=== PATIENT | female | born 1960 | race Caucasian/White ===

== ENCOUNTER 2018-06-12 11:28 | Observation (INO) ==
--- NOTE | 2018-06-12 11:37 | Emergency Department Note ---
Disposition Clinical Impression: Chest pain, Headache Disposition: Home, Self-Care Condition: Good Referrals: Anna Nicole CNP [Primary Care Provider] - Forms: ED Satisfaction Letter Time of Disposition: 14:30 Chest Pain HPI - General Chief Complaint: ED Chest Pain Stated Complaint: chest pain int x2 weeks Time Seen by Provider: 06/12/18 11:30 Source: patient Mode of arrival: ambulatory Limitations: no limitations Vital Signs Reviewed: Yes Nursing Notes Reviewed: Yes - History of Present Illness HPI Narrative: 58-year-old female who presents today with intermittent chest pains last couple of weeks. She states really she has not felt well for about 4 weeks. 5 weeks ago she was started onto a city and she states that her sugars are back under control she feels weak and shaky off and now. She states the chest pain start i n her left upper chest radiating into her jaw and down her left arm. She states she gets very nauseated with them and very weak with them. She states that she does not herself have a history of cardiac disease but her dad had a heart attack in his 60s and got multiple stents. She states about 4 years ago she had a stress test which was normal. She is not a smoker. She is a diabetic. She does not have high cholesterol. Pt complaint: chest pain - Related Data Home Medications Medication Instructions Recorded Confirmed Aspirin 81 mg PO DAILY 01/26/16 06/12/18 LORazepam [Ativan] 0.5 mg PO TID 01/26/16 06/12/18 Lansoprazole [Prevacid] 30 mg PO DAILY 01/26/16 06/12/18 Liraglutide [Victoza 2-Rehan] 1.6 mg SQ DAILY 01/26/16 06/12/18 Oxycodone HCl/Acetaminophen 1 each PO TID 09/25/17 06/12/18 [Percocet 7.5-325 mg Tablet] SitaGLIPtin [Januvia] 100 mg PO DAILY 09/25/17 06/12/18 Trazodone HCl 200 mg PO HS 09/25/17 06/12/18 Dulaglutide [Trulicity] 0.75 mg SQ Q1W 06/12/18 06/12/18 Previous Rx's Medication Instructions Recorded Naproxen [Naprosyn] 500 mg PO BID #14 tablet 09/25/17 Omeprazole [PriLOSEC] 20 mg PO DAILY #28 cap 10/14/18 Acetaminophen/Butalbital/Caffe 1 each PO Q6HR PRN #5 tablet 05/18/18 [Fioricet] Allergies Allergy/AdvReac Type Severity Reaction Status Date / Time No Known Allergies Allergy Verified 09/26/17 16:31 Review of Systems: All other systems are negative except as noted/marked Chart generated with voice recognition software Nursing notes reviewed Old records reviewed Chest Pain PMH - Past Medical History Medical history: Reports: cancer, DVT, diabetes, GERD, hypertension, migraine, renal disease, other Surgical history: Reports: cancer surgery, cholecystectomy, hysterectomy, orthopedic, other Psychiatric history: Reports: anxiety, depression DESIGN CHECKER history: Reports: no DESIGN CHECKER history - Social History Smoking Status: Former smoker Alcohol use: Reports: none Drug use: Reports: none Physical Exam General: NAD, VSS Head: normocephalic, atraumatic Eyes: EOMI, PERRLA mouth: moist mucous membranes Neck: NO CLA, Supple Chest wall: normal rise, no crepitus, no deformity noted Lungs: moving air well, no distress Heart: RRR, no murmur Abd: soft, nontender, BS normal : deferred MSK: strength equal in all four extremities Ext: moves all four extremities, no obvious deformities Skin: cap refill normal, warm, dry neuro : CN2-12 grossly intact, A&Ox3 Psych: normal affect, not anxious Course Vital Signs Temperature 97.8 F 06/12/18 11:30 Pulse Rate 98 06/12/18 11:30 Respiratory Rate 18 06/12/18 11:30 Blood Pressure 125/87 06/12/18 11:30 O2 Sat by Pulse Oximetry 99 06/12/18 11:30 Temperature 97.8 F 06/12/18 11:30 Pulse Rate 83 06/12/18 13:26 Respiratory Rate 18 06/12/18 13:26 Blood Pressure 135/105 06/12/18 13:26 O2 Sat by Pulse Oximetry 93 06/12/18 13:26 Oxygen Delivery Oxygen Delivery Room Air Chest Pain - MDM Narrative Medical decision making narrative: On re-evaluation, patient still not having chest pain but is complaining of some headache. she has had these off and on for " a while" will given phenergan and tylenol for the headache and obtain head CT as she hsan't had a work up for these. First enzyme negative. Will repeat at 2 hour then disposition. Heart score of 5 Her repeat troponin is negative. She still having somewhat of a headache but I gave her her daily Fioricet that she takes at home along with Phenergan she got here in the Tylenol. I recommended that we keep her overnight his story was pretty good and heart score is 5 at just to make sure nothing else shows up. I spoke with Dr. Roberts the hospitalist who agreed to keep her for evaluation. - Medical Records Medical records reviewed: Yes I reviewed the patient's medical records. - Lab Data Lab results reviewed: Yes I reviewed the patient's lab results. Result diagrams: 06/12/18 11:49 06/12/18 11:49 Lab Results 06/12/18 06/12/18 06/12/18 Range/Units 11:49 11:49 11:49 WBC 7.7 (4.3-11.1) K/mcL RBC 5.39 H (3.82-4.97) M/mcL Hgb 14.5 (11.5-15.4) g/dL Hct 45.0 H (35.3-44.9) % MCV 83.5 (83.0-100.0) fL MCH 26.9 L (28.0-33.3) pg MCHC 32.2 (31.6-35.5) g/dL RDW 12.7 (11.5-14.5) % Plt Count 232 (140-400) K/mcL MPV 10.8 (9.4-12.4) fL Immature Gran % 0.4 (0-4) % Seg Neutrophils % 69.2 % Lymphocytes % 20.9 % Monocytes % 6.4 % Eosinophils % 2.6 % Basophils % 0.5 % Neutrophils # 5.3 (1.6-8.9) K/mcL Lymphocytes # 1.6 (0.6-4.6) K/mcL Monocytes # 0.5 (0.0-1.3) K/mcL Eosinophils # 0.2 (0.0-0.6) K/mcL Basophils # 0.0 (0.0-0.2) K/mcL PT 11.7 (9.4-12.1) Seconds INR 1.0 APTT 38.9 H (26.0-36.0) Seconds Sodium (136-145) mEq/L Potassium (3.5-5.1) mEq/L Chloride (98-107) mEq/L Carbon Dioxide (23-29) mEq/L BUN (8-23) mg/dL Creatinine (0.60-1.20) mg/dL Est GFR ( Amer) (> 60) Est GFR (Non-Af Amer) (> 60) BUN/Creatinine Ratio (6-26) Glucose (70-105) mg/dL Calculated Osmolality (280-300) Calcium (8.6-10.3) mg/dL Troponin I (< 0.04) ng/mL B-Natriuretic Peptide 11 (Less than 100) pg/mL Urine Color (Yellow) Urine Clarity (Clear) Urine pH (5.0-8.0) pH Units Ur Specific Bl[place]ard (1.010-1.025) Urine Protein (Neg-Trace) mg/dL Urine Glucose (UA) (Normal) mg/dL Urine Ketones (Negative) mg/dL Urine Blood (Negative) Urine Nitrite (Negative) Urine Bilirubin (Negative) Urine Urobilinogen (Normal) mg/dL Ur Leukocyte Esterase (Negative) Urine Microscopic WBC (0-3) per hpf Ur Squamous Epith Cells (None-Few) per lpf Urine Bacteria (None-Few) per hpf Urine Mucus (Few) Ur Culture Indicated? (NO) Urine Opiates Screen (Iqfzmi=418) ng/mL Ur Oxycodone Screen (Cutoff= 100) ng/mL Ur Barbiturates Screen (Cmtvic=489) ng/mL Ur Phencyclidine Scrn (Cutoff=25) ng/mL Ur Amphetamines Screen (Moalyj=8041) ng/mL U Benzodiazepines Scrn (Ovqcha=505) ng/mL Urine Cocaine Screen (Cutoff= 300) ng/mL U Marijuana (THC) Screen (Cutoff = 50) ng/mL Ur Drug Screen Interp 06/12/18 06/12/18 06/12/18 Range/Units 11:49 13:12 13:12 WBC (4.3-11.1) K/mcL RBC (3.82-4.97) M/mcL Hgb (11.5-15.4) g/dL Hct (35.3-44.9) % MCV (83.0-100.0) fL MCH (28.0-33.3) pg MCHC (31.6-35.5) g/dL RDW (11.5-14.5) % Plt Count (140-400) K/mcL MPV (9.4-12.4) fL Immature Gran % (0-4) % Seg Neutrophils % % Lymphocytes % % Monocytes % % Eosinophils % % Basophils % % Neutrophils # (1.6-8.9) K/mcL Lymphocytes # (0.6-4.6) K/mcL Monocytes # (0.0-1.3) K/mcL Eosinophils # (0.0-0.6) K/mcL Basophils # (0.0-0.2) K/mcL PT (9.4-12.1) Seconds INR APTT (26.0-36.0) Seconds Sodium 138 (136-145) mEq/L Potassium 4.3 (3.5-5.1) mEq/L Chloride 101 (98-107) mEq/L Carbon Dioxide 29 (23-29) mEq/L BUN 18 (8-23) mg/dL Creatinine 0.80 (0.60-1.20) mg/dL Est GFR ( Amer) > 60 (> 60) Est GFR (Non-Af Amer) > 60 (> 60) BUN/Creatinine Ratio 23 (6-26) Glucose 183 H (70-105) mg/dL Calculated Osmolality 293 (280-300) Calcium 9.2 (8.6-10.3) mg/dL Troponin I < 0.03 (< 0.04) ng/mL B-Natriuretic Peptide (Less than 100) pg/mL Urine Color Yellow (Yellow) Urine Clarity Clear (Clear) Urine pH 5.5 (5.0-8.0) pH Units Ur Specific [place] >= 1.030 H (1.010-1.025) Urine Protein 30 H (Neg-Trace) mg/dL Urine Glucose (UA) 100 H (Normal) mg/dL Urine Ketones Negative (Negative) mg/dL Urine Blood Negative (Negative) Urine Nitrite Negative (Negative) Urine Bilirubin Negative (Negative) Urine Urobilinogen Normal (Normal) mg/dL Ur Leukocyte Esterase Negative (Negative) Urine Microscopic WBC 5-15 H (0-3) per hpf Ur Squamous Epith Cells Few (None-Few) per lpf Urine Bacteria Few (None-Few) per hpf Urine Mucus Moderate H (Few) Ur Culture Indicated? NO (NO) Urine Opiates Screen Negative (Yjrsxy=144) ng/mL Ur Oxycodone Screen Positive H (Cutoff= 100) ng/mL Ur Barbiturates Screen Negative (Tipxpz=876) ng/mL Ur Phencyclidine Scrn Negative (Cutoff=25) ng/mL Ur Amphetamines Screen Negative (Niwmlq=4762) ng/mL U Benzodiazepines Scrn Positive H (Tghptl=385) ng/mL Urine Cocaine Screen Negative (Cutoff= 300) ng/mL U Marijuana (THC) Screen Negative (Cutoff = 50) ng/mL Ur Drug Screen Interp See Below 06/12/18 Range/Units 13:35 WBC (4.3-11.1) K/mcL RBC (3.82-4.97) M/mcL Hgb (11.5-15.4) g/dL Hct (35.3-44.9) % MCV (83.0-100.0) fL MCH (28.0-33.3) pg MCHC (31.6-35.5) g/dL RDW (11.5-14.5) % Plt Count (140-400) K/mcL MPV (9.4-12.4) fL Immature Gran % (0-4) % Seg Neutrophils % % Lymphocytes % % Monocytes % % Eosinophils % % Basophils % % Neutrophils # (1.6-8.9) K/mcL Lymphocytes # (0.6-4.6) K/mcL Monocytes # (0.0-1.3) K/mcL Eosinophils # (0.0-0.6) K/mcL Basophils # (0.0-0.2) K/mcL PT (9.4-12.1) Seconds INR APTT (26.0-36.0) Seconds Sodium (136-145) mEq/L Potassium (3.5-5.1) mEq/L Chloride (98-107) mEq/L Carbon Dioxide (23-29) mEq/L BUN (8-23) mg/dL Creatinine (0.60-1.20) mg/dL Est GFR ( Amer) (> 60) Est GFR (Non-Af Amer) (> 60) BUN/Creatinine Ratio (6-26) Glucose (70-105) mg/dL Calculated Osmolality (280-300) Calcium (8.6-10.3) mg/dL Troponin I < 0.03 (< 0.04) ng/mL B-Natriuretic Peptide (Less than 100) pg/mL Urine Color (Yellow) Urine Clarity (Clear) Urine pH (5.0-8.0) pH Units Ur Specific [place] (1.010-1.025) Urine Protein (Neg-Trace) mg/dL Urine Glucose (UA) (Normal) mg/dL Urine Ketones (Negative) mg/dL Urine Blood (Negative) Urine Nitrite (Negative) Urine Bilirubin (Negative) Urine Urobilinogen (Normal) mg/dL Ur Leukocyte Esterase (Negative) Urine Microscopic WBC (0-3) per hpf Ur Squamous Epith Cells (None-Few) per lpf Urine Bacteria (None-Few) per hpf Urine Mucus (Few) Ur Culture Indicated? (NO) Urine Opiates Screen (Pimkpv=389) ng/mL Ur Oxycodone Screen (Cutoff= 100) ng/mL Ur Barbiturates Screen (Jicumk=130) ng/mL Ur Phencyclidine Scrn (Cutoff=25) ng/mL Ur Amphetamines Screen (Glcqvo=5633) ng/mL U Benzodiazepines Scrn (Avxbmg=045) ng/mL Urine Cocaine Screen (Cutoff= 300) ng/mL U Marijuana (THC) Screen (Cutoff = 50) ng/mL Ur Drug Screen Interp - Radiology Data Radiology results reviewed: Yes I reviewed the patient's radiology results. EXAMINATION: SINGLE XRAY VIEW OF THE CHEST 06/12/2018 11:45 am COMPARISON: 02/08/2018. HISTORY: ORDERING SYSTEM PROVIDED HISTORY: chest pain Acute. Initial exam. FINDINGS: The cardiac silhouette and mediastinal contours are normal. The lungs are clear. No parenchymal lung infiltrate. No pleural effusion. The visualized osseous structures are unremarkable. XR/XR chest 1V portable IMPRESSION: 1. No acute cardiopulmonary disease. D/ / Tobias Tracy MD / Tobias Tracy MD Interpreting Provider: Tobias Tracy MD INATION: CT OF THE HEAD WITHOUT CONTRAST 06/12/2018 12:20 pm TECHNIQUE: CT of the head was performed without the administration of intravenous contrast. Dose modulation, iterative reconstruction, and/or weight based adjustment of the mA/kV was utilized to reduce the radiation dose to as low as reasonably achievable. COMPARISON: None. HISTORY: ORDERING SYSTEM PROVIDED HISTORY: headache Headache. FINDINGS: BRAIN/VENTRICLES: There is no acute intracranial hemorrhage, mass effect or midline shift. No abnormal extra-axial fluid collection. The marin-white differentiation is maintained without evidence of an acute infarct. There is no evidence of hydrocephalus. ORBITS: The visualized portion of the orbits demonstrate no acute abnormality. SINUSES: The visualized paranasal sinuses and mastoid air cells demonstrate no acute abnormality. SOFT TISSUES/SKULL: No acute abnormality of the visualized skull or soft tissues. CT/CT head/brain wo con IMPRESSION: No acute intracranial abnormality. D/ / Baltazar Delgado MD / Baltazar Delgado MD Interpreting Provider: Baltazar Delgado MD - EKG Data EKG attestation: Yes I reviewed and interpreted this EKG. EKG results narrative: EKG interpreted by myself as a sinus rhythm with a rate of [address] elevation Heart Score - Score History: Highly Suspicious EKG: Normal Age: 45-65 Risk Factors: Equal/Greater than 3 risk factor or history of atherosclerotic disease Troponin: Less than normal limit HEART Score Total: 5
[2018-06-12 11:55] LABS: Basophils % 0.5 %; Eosinophils # 0.2 K/mcL (0.0-0.6); Eosinophils % 2.6 %; Hemoglobin 14.5 g/dL (11.5-15.4); Immature Granulocytes % 0.4 % (0-4); Lymphocytes # 1.6 K/mcL (0.6-4.6); Lymphocytes % 20.9 %; Mean Corpuscular HGB Conc 32.2 g/dL (31.6-35.5); Mean Corpuscular Hemoglobin 26.9 pg (28.0-33.3); Mean Corpuscular Volume 83.5 fL (83.0-100.0); Mean Platelet Volume 10.8 fL (9.4-12.4); Monocytes # 0.5 K/mcL (0.0-1.3); Monocytes % 6.4 %; Neutrophils # 5.3 K/mcL (1.6-8.9); Platelet Count 232 K/mcL (140-400); Red Blood Count 5.39 M/mcL (3.82-4.97); Red Cell Distribution Width 12.7 % (11.5-14.5); Segmented Neutrophils % 69.2 %
[2018-06-12] MEDS ORDERED: *HR* Promethazine 25 MG/ML VIAL IVP ONE (12:02)
[2018-06-12 12:04] LABS: Prothrombin Time 11.7 Seconds (9.4-12.1)
[2018-06-12 12:06] LABS: Activated Partial Thrombo Time 38.9 Seconds (26.0-36.0)
[2018-06-12 12:13] LABS: BUN/Creatinine Ratio 23 (6-26); Blood Urea Nitrogen 18 mg/dL (8-23); Calcium 9.2 mg/dL (8.6-10.3); Carbon Dioxide 29 mEq/L (23-29); Chloride 101 mEq/L (98-107); Glucose 183 mg/dL (70-105); Osmolality,Calculated 293 (280-300); Potassium 4.3 mEq/L (3.5-5.1); Sodium 138 mEq/L (136-145); eGFR For Non-African Americans > 60 (> 60)
[2018-06-12 12:16] LABS: Troponin I < 0.03 ng/mL (< 0.04)
[2018-06-12 13:19] LABS: Bilirubin,Urine Negative (Negative); Blood,Urine Negative (Negative); Clarity,Urine Clear (Clear); Color,Urine Yellow (Yellow); Glucose,Urine (UA) 100 mg/dL (Normal); Ketones,Urine Negative (Negative); Leukocyte Esterase,Urine Negative (Negative); Nitrite,Urine Negative (Negative); PH,Urine 5.5 pH Units (5.0-8.0); Protein,Urine 30 mg/dL (Neg-Trace); Specific Gravity,Urine >= 1.030 (1.010-1.025); Urobilinogen,Urine Normal (Normal)
[2018-06-12 13:26] LABS: Squamous Epithelial Cell,Urine Few per lpf (None-Few)
[2018-06-12 13:27] LABS: Bacteria,Urine Few per hpf (None-Few); Mucus,Urine Moderate (Few)
[2018-06-12 13:32] LABS: Amphetamine Screen,Urine Negative ng/mL (Cutoff=1000); Barbiturate Screen,Urine Negative ng/mL (Cutoff=200); Benzodiazepines Screen,Urine Positive ng/mL (Cutoff=200); Cannabinoid Screen,Urine Negative ng/mL (Cutoff = 50); Cocaine Screen,Urine Negative ng/mL (Cutoff= 300); Opiate Screen,Urine Negative ng/mL (Cutoff=300); Phencyclidine Screen,Urine Negative ng/mL (Cutoff=25)
[2018-06-12] MEDS ORDERED: Acetaminophen/Butalbital/CaffeineTABLET PO STA (13:46)
[2018-06-12] MEDS ORDERED: cephALEXin 250 MG CAPSULE PO ONE (14:04)
[2018-06-12] MEDS ORDERED: (Dulaglutide [Trulicity] 0.75 MG) SQ SCH (17:25)
[2018-06-12] MEDS ORDERED: Ibuprofen 400 MG TABLET PO PRN (17:25)
[2018-06-12] MEDS ORDERED: MOM Conc 10 ML UD.LIQ PO PRN (17:25)
[2018-06-12] MEDS ORDERED: Ketorolac 30 MG/ML VIAL IVP PRN (17:25)
[2018-06-12] MEDS ORDERED: *HR* Promethazine 25 MG/ML VIAL IVP PRN (17:25)
[2018-06-12] MEDS ORDERED: Acetaminophen 325 MG TABLET PO PRN (17:25)
[2018-06-12] MEDS ORDERED: Mag Hydrox/Al Hydrox/Simeth 30 ML UDC PO PRN (17:25)
[2018-06-12] MEDS ORDERED: Ondansetron 4 MG/2 ML VIAL IVP PRN (17:25)
[2018-06-12] MEDS ORDERED: Naloxone 0.4 MG/ML INJ IVP PRN ×2 (17:25)
[2018-06-12] MEDS: *HR* LORazepam 0.5 MG TABLET PO SCH ×2 (19:00→21:26)
[2018-06-12] MEDS: *HR* OxyCODONE/APAP 7.5/325 TABLET PO SCH ×2 (19:04→21:30)
[2018-06-12] MEDS ORDERED: traZODone 50 MG TABLET PO SCH (21:00)
[2018-06-13 06:07] LABS: Basophils # 0.1 K/mcL (0.0-0.2); Basophils % 0.6 %; Eosinophils # 0.2 K/mcL (0.0-0.6); Eosinophils % 2.3 %; Hematocrit 43.5 % (35.3-44.9); Hemoglobin 14.2 g/dL (11.5-15.4); Immature Granulocytes % 0.4 % (0-4); Lymphocytes # 2.2 K/mcL (0.6-4.6); Lymphocytes % 27.2 %; Mean Corpuscular HGB Conc 32.6 g/dL (31.6-35.5); Mean Corpuscular Hemoglobin 27.4 pg (28.0-33.3); Mean Corpuscular Volume 83.8 fL (83.0-100.0); Mean Platelet Volume 10.7 fL (9.4-12.4); Monocytes # 0.6 K/mcL (0.0-1.3); Monocytes % 6.7 %; Neutrophils # 5.1 K/mcL (1.6-8.9); Platelet Count 216 K/mcL (140-400); Red Blood Count 5.19 M/mcL (3.82-4.97); Red Cell Distribution Width 12.8 % (11.5-14.5); Segmented Neutrophils % 62.8 %
[2018-06-13 06:30] LABS: BUN/Creatinine Ratio 16 (6-26); Blood Urea Nitrogen 14 mg/dL (8-23); Carbon Dioxide 30 mEq/L (23-29); Chloride 102 mEq/L (98-107); Glucose 144 mg/dL (70-105); Osmolality,Calculated 289 (280-300); Potassium 3.9 mEq/L (3.5-5.1); Sodium 138 mEq/L (136-145); eGFR For Non-African Americans > 60 (> 60)
[2018-06-13 07:35] VITALS: BP 110/75
[2018-06-13] MEDS: *HR* OxyCODONE/APAP 7.5/325 TABLET PO SCH (08:42)
[2018-06-13] MEDS: *HR* LORazepam 0.5 MG TABLET PO SCH (08:42)
[2018-06-13] MEDS ORDERED: Aspirin 81 MG TAB.CHEW PO SCH (09:00)
[2018-06-13] MEDS ORDERED: LIRAGLUTIDE 1.6 MG SQ SCH (09:00)
[2018-06-13] MEDS ORDERED: *HR* SitaGLIPtin 25 MG TABLET PO SCH (09:00)
--- NOTE | 2018-06-13 12:10 | Internal Med History&Physical ---
Date of Encounter: 06/13/18 Time of Encounter: 12:07 Assessment and Plan (1) Non-cardiac chest pain Current visit: Yes Status: Resolved Pt with non-anginal chest pain which appears muscloskeletal. She is currently asymptomatic. Exam is benign. Work-up negative including serial cardiac enzymes, EKG, telemetry and CXR. She will f/u with PCP for further evaluation and return to ED with any symptoms of acute coronary syndrome. Internal Medicine - H&P: HPI Chief complaint: chest pain Admitted From: Home Plans for Post Hospital Care: Home History of present illness: Ms. Mayberry is a 58 year old female with no known history of CAD that presented to ED with a few week history of sporadic, intermittent episodes of sharp, stabbing left upper chest pain which would radiate in to left arm and left neck. Pain would last 2-3 minutes before self-resolving. No pain with exertion. She does note that twisting of torso does make pain worse when it is occurring. She also has her chronic headaches which are unchanged. She has neurology f/u arr anged per her report. Following negative ED work-up, pt was admitted for serial cardiac enzymes. Pt has remained chest pain free and is doing well. All cardiac enzymes negative. Telemetry benign. Pt is ambulating and tolerating regular diet. She is agreeable to discharge home at this time. Past Med Surg Social Fam HX - Past Medical History Medical history: cancer, DVT, diabetes, GERD, hypertension, migraine, renal disease, other Additional medical history: skin and uterine cancer Psychiatric history: anxiety, depression - Past Surgical History Surgical History: cancer surgery, cholecystectomy, hysterectomy, orthopedic, other Additional surgical history: right knee scope. skin cancer removed from face - Social History Smoking Status: Former smoker Smokeless Tobacco Status: Yes Alcohol use: none Drug use: none - Family History Father Living Status: Hx Family Cancer: Yes (leukemia) Hx Family Neurologic Disorders: Yes (alzheimers) Internal Medicine - H&P: Meds Aspirin 81 mg PO DAILY 01/26/16 [History] LORazepam [Ativan] 0.5 mg PO TID 01/26/16 [History] Lansoprazole [Prevacid] 30 mg PO DAILY 01/26/16 [History] Liraglutide [Victoza 2-Rehan] 1.6 mg SQ DAILY 01/26/16 [History] Naproxen [Naprosyn] 500 mg PO BID #14 tablet 09/25/17 [Rx] Oxycodone HCl/Acetaminophen [Percocet 7.5-325 mg Tablet] 1 each PO TID 09/25/17 [History] SitaGLIPtin [Januvia] 100 mg PO DAILY 09/25/17 [History] Trazodone HCl 200 mg PO HS 09/25/17 [History] Omeprazole [PriLOSEC] 20 mg PO DAILY #28 cap 02/08/18 [Rx] Acetaminophen/Butalbital/Caffe [Fioricet] 1 each PO Q6HR PRN #5 tablet 05/18/18 [Rx] Dulaglutide [Trulicity] 0.75 mg SQ Q1W 06/12/18 [History] Allergy/AdvReac Type Severity Reaction Status Date / Time No Known Allergies Allergy Verified 09/26/17 16:31 All Systems PM: A 10-system review of systems was performed and is negative for pertinent findings except as documented above in the HPI. - Constitutional Vitals: Temp Pulse Resp BP Pulse Ox 98.0 F 85 14 110/75 91 06/13/18 07:34 06/13/18 07:34 06/13/18 07:34 06/13/18 07:34 06/13/18 07:34 Exam: Gen: Lying in bed, NAD HEENT: NC, AT Neck: Trachea midline, no mass Pulm: No respiratory distress, CTAB CV: Normal S1 and S2, RRR Abdomen: Soft, ND, NT Ext: No C/C/E Neuro: No appreciable motor/sensor deficits Skin: Warm and dry, no rash Psych: A&Ox3 Internal Med - H&P Results - Labs CBC & Chem 7: 06/13/18 05:52 06/13/18 05:52 Labs: Short CBC 06/13/18 Range/Units 05:52 WBC 8.2 (4.3-11.1) K/mcL Hgb 14.2 (11.5-15.4) g/dL Hct 43.5 (35.3-44.9) % Plt Count 216 (140-400) K/mcL Neutrophils # 5.1 (1.6-8.9) K/mcL BMP 06/12/18 06/13/18 11:49 05:52 Sodium 138 138 Potassium 4.3 3.9 Chloride 101 102 Carbon Dioxide 29 30 H BUN 18 14 Creatinine 0.80 0.87 Glucose 183 H 144 H Calcium 9.2 9.0 Cardiac Enzymes 06/12/18 06/12/18 06/12/18 Range/Units 11:49 13:35 17:51 Troponin I < 0.03 < 0.03 < 0.03 (< 0.04) ng/mL 06/12/18 06/13/18 Range/Units 23:23 05:52 Troponin I < 0.03 < 0.03 (< 0.04) ng/mL Urine 06/12/18 Range/Units 13:12 Urine Color Yellow (Yellow) Urine Clarity Clear (Clear) Urine pH 5.5 (5.0-8.0) pH Units Ur Specific [place] >= 1.030 H (1.010-1.025) Urine Protein 30 H (Neg-Trace) mg/dL Urine Glucose (UA) 100 H (Normal) mg/dL - Impressions ITS Impressions Chest X-Ray 06/12/18 11:37 IMPRESSION: 1. No acute cardiopulmonary disease. D/ / Tobias Tracy MD / Tobias Tracy MD Interpreting Provider: Tobias Tracy MD Head CT 06/12/18 12:02 IMPRESSION: No acute intracranial abnormality. D/ / Baltazar Delgado MD / Baltazar Delgado MD Interpreting Provider: Baltazar Delgado MD
--- NOTE | 2018-06-13 12:14 | Discharge Summary ---
Orders not resulted at time of discharge: Pending orders 06/13/18 06:00 ECG 12 lead ECG [ECG] AM 0600 Date of Encounter: 06/13/18 Time of Encounter: 12:12 - Discharge Diagnosis (1) Non-cardiac chest pain Priority: Primary Status: Resolved Comments: Pt with non-anginal chest pain which appears muscloskeletal. She is currently asymptomatic. Exam is benign. Work-up negative including serial cardiac enzymes, EKG, telemetry and CXR. She will f/u with PCP for further evaluation and return to ED with any symptoms of acute coronary syndrome. Hospital course: Ms. Mayberry is a 58 year old female admitted from ED for evaluation of non- anginal chest pain. Pt has remained chest pain free throughout hospital stay and is doing well. All cardiac enzymes negative. Telemetry benign. Pt is ambulating and tolerating regular diet. She is agreeable to discharge home at this time. No medication changes were made. Discharge discussed with: patient - Time Spent with Patient Total time spent providing and/or coordinating discharge services: Less than 30 minutes - Discharge Medications Home Medications: RX: Aspirin 81 mg PO DAILY 01/26/16 [History] RX: LORazepam [Ativan] 0.5 mg PO TID 01/26/16 [History] RX: Lansoprazole [Prevacid] 30 mg PO DAILY 01/26/16 [History] RX: Liraglutide [Victoza 2-Rehan] 1.6 mg SQ DAILY 01/26/16 [History] RX: Naproxen [Naprosyn] 500 mg PO BID #14 tablet 09/25/17 [Rx] RX: Oxycodone HCl/Acetaminophen [Percocet 7.5-325 mg Tablet] 1 each PO TID 09/25/17 [History] RX: SitaGLIPtin [Januvia] 100 mg PO DAILY 09/25/17 [History] RX: Trazodone HCl 200 mg PO HS 09/25/17 [History] RX: Omeprazole [PriLOSEC] 20 mg PO DAILY #28 cap 02/08/18 [Rx] RX: Acetaminophen/Butalbital/Caffe [Fioricet] 1 each PO Q6HR PRN #5 tablet 05/18/18 [Rx] RX: Dulaglutide [Trulicity] 0.75 mg SQ Q1W 06/12/18 [History] Allergies/Adverse Reactions: Allergy/AdvReac Type Severity Reaction Status Date / Time No Known Allergies Allergy Verified 09/26/17 16:31 Date of admission: 06/12/18 16:00 Primary care physician: Anna Nicole CNP Consults: None Discharging clinician: Carlos Watson Anticipated date of discharge: 06/13/18 - Constitutional Vitals: Temp Pulse Resp BP Pulse Ox 98.0 F 85 14 110/75 91 06/13/18 07:34 06/13/18 07:34 06/13/18 07:34 06/13/18 07:34 06/13/18 07:34 Exam: Gen: Lying in bed, NAD HEENT: NC, AT Neck: Trachea midline, no mass Pulm: No respiratory distress, CTAB CV: Normal S1 and S2, RRR Abdomen: Soft, ND, NT Ext: No C/C/E Neuro: No appreciable motor/sensor deficits Skin: Warm and dry, no rash Psych: A&Ox3 - Patient Status Disposition: Home, Self-Care Condition: Good Functional capacity at discharge: independent ambulation Overall status at discharge: patient is back to baseline - Discharge Instructions Follow Up With: Anna Nicole CNP [Primary Care Provider] - 1 week - Diet and Activity Activity: increase activity as tolerated Diet: advance to your usual diet
--- NOTE | 2018-06-13 21:44 | Electrocardiograph Report ---
[place] [id number] Test Date: 2018-06-12 Pat Name: Juanita Mayberry Department: EDP-14 Room: [facility] Gender: F [employer]: : 1960 Requested By: Fanny Trinidad Order Number: [id number] Reading MD: Arlette Helms Measurements Intervals [place] Rate: 83 P: 68 NM: 159 QRS: 25 QRSD: 97 T: 73 QT: 356 QTc: 419 Interpretive Statements Sinus rhythm Consider RVH or posterior infarct Electronically Signed On 06-13-2018 21:43:19 EST by Arlette Helms
--- NOTE | 2018-06-17 00:42 | Electrocardiograph Report ---
[place] [id number] Test Date: 2018-06-13 Pat Name: Juanita Mayberry Department: [id number] Room: [facility] [place] Gender: F [employer] Clerk: : 1960 Requested By: Fanny Trinidad Order Number: [id number] Reading MD: Nely Ramesh Measurements Intervals [place] Rate: 80 P: 54 MA: 170 QRS: 8 QRSD: 89 T: 75 QT: 371 QTc: 407 Interpretive Statements SINUS RHYTHM NONSPECIFIC T-WAVE ABNORMALITY Electronically Signed On 06-17-2018 0:40:38 EST by Nely Ramesh
== END 2018-06-13 13:02 | disposition home or self-care (01) ==
LOC: INPPIK 11:28 → EMEROOPIK 11:28 → INPPIK 15:06
PROVIDERS: ADMIT Internal Medicine; ATTEND Internal Medicine